=== PATIENT | female | born 1995 | race African-American/Black ===

== ENCOUNTER 2020-03-10 13:58 | Outpatient (CLI) | payer OTHER ==
[2020-03-11 13:27] LABS: SARS-CoV-2 MS2 Positive; SARS-CoV-2 N Gene Negative; SARS-CoV-2 S Gene Negative; SARS-CoV-2 by NAA Not Detected (NotDetected); SARS-CoV-2 orf1ab Negative
== END 2020-03-10 13:59 | disposition home or self-care (01) ==
LOC: LABSCS 13:58
PROVIDERS: ATTEND Family Medicine
DX: Z20.828 Contact with and (suspected) exposure to other viral communicable diseases (principal)
CPT/HCPCS: 87635; U0003

== ENCOUNTER 2020-03-12 14:55 | Inpatient (IN) | payer OTHER ==
[2020-03-13] MEDS ORDERED: Promethazine HCl 25 MG/ML VIAL IM PRN (00:45)
[2020-03-13] MEDS ORDERED: Lidocaine 1% (PF) 30 ML VIAL SC PRN (00:45)
[2020-03-13] MEDS ORDERED: Ondansetron PF 4 MG/2 ML Vial IVP PRN ×2 (00:45→13:34)
[2020-03-13] MEDS ORDERED: HYDROcodone/Acetaminophen 5/325 mg Tablet PO PRN ×3 (00:45→13:34)
[2020-03-13] MEDS ORDERED: Ibuprofen 800 MG TAB PO PRN (00:45)
[2020-03-13] MEDS ORDERED: Diphenoxylate HCl/Atropine Tablet PO PRN (00:45)
[2020-03-13] MEDS ORDERED: NS w/ Oxytocin 10 units 500 ML IV SCH ×2 (00:45)
[2020-03-13] MEDS ORDERED: Butorphanol Tartrate 1 MG/ML VIAL SLOW IVP PRN (00:45)
[2020-03-13] MEDS ORDERED: Misoprostol 200 MCG TAB PR PRN (00:45)
[2020-03-13] MEDS ORDERED: NS / Oxytocin 40 units/1000ml 1,000 ML IV PRN (00:45)
[2020-03-13] MEDS ORDERED: hydrALAZINE 20 MG/ML VIAL SLOW IVP PRN ×2 (00:45→13:34)
[2020-03-13] MEDS ORDERED: Methylergonovine 0.2 MG/ML VIAL IM PRN (00:45)
[2020-03-13] MEDS ORDERED: Penicillin G Potassium 5 MILL.UNITS in Sodium Chloride 0.9% 100 ML IVPB SCH (00:45)
[2020-03-13] MEDS ORDERED: Carboprost 250 MCG/ML AMP IM PRN (00:45)
[2020-03-13 00:54] VITALS: BMI 26.7
[2020-03-13] MEDS: Lactated Ringer's 1,000 ML IV SCH ×2 (01:33→05:10)
[2020-03-13 01:59] LABS: Hemoglobin 11.3 g/dL (12.0-16.0); Mean Corpuscular HGB CONC 34.2 g/dL (32.0-36.0); Mean Corpuscular Hemoglobin 31.4 pg (27.0-31.0); Mean Corpuscular Volume 91.8 fL (78.0-98.0); Mean Platelet Volume 10.4 fL (7.4-10.4); Platelet Count 155 thou/uL (130-400); RBC Distribution Width 11.9 % (11.5-14.5); Red Blood Cell (RBC) Count 3.62 mill/uL (4.20-5.40); White Blood Cell (WBC) Count 8.3 thou/uL (4.8-10.8)
[2020-03-13 02:31] LABS: HBSAg Index 0.16 S/CO (0-0.99); Hep B Surf Ag Non-Reactive S/CO (NonReactive)
[2020-03-13 03:32] LABS: Syphilis Antibody Nonreactive (Nonreactive); Syphilis Antibody Index 0.03 S/CO (<1.00 Non-Reactive)
[2020-03-13] MEDS: Penicillin G 2.5 MILL.units 2.5 MILL.UNITS in Premix Bag 1 BAG IVPB SCH ×4 (05:55→17:28)
[2020-03-13] MEDS: Misoprostol 100 MCG TAB PO SCH ×3 (08:44→17:26)
[2020-03-13] MEDS ORDERED: Milk Of Magnesia 30 ML UDCUP PO PRN (13:34)
[2020-03-13] MEDS ORDERED: diphenhydrAMINE 25 MG CAP PO PRN (13:34)
[2020-03-13] MEDS ORDERED: NS / Oxytocin 40 units/1000ml 1,000 ML IV SCH (13:34)
[2020-03-13] MEDS ORDERED: Benzocaine-Menthol 82.5 ML CAN TOP PRN (13:34)
[2020-03-13] MEDS ORDERED: Bisacodyl 10 MG SUPP PR PRN (13:34)
[2020-03-13] MEDS ORDERED: Misoprostol 200 MCG TAB ONE (15:14)
[2020-03-13] MEDS ORDERED: Methylergonovine 0.2 MG/ML VIAL ONE (15:22)
[2020-03-13] MEDS: Ibuprofen 800 MG TAB PO SCH ×2 (15:30→21:44)
[2020-03-13] MEDS ORDERED: Methylergonovine 0.2 MG/ML VIAL IM SCH (16:00)
[2020-03-13] MEDS: Ferrous Sulfate 325 MG TAB PO SCH (17:27)
[2020-03-13] MEDS: Docusate Calcium (SURFAK) 240 MG CAP PO SCH (19:56)
[2020-03-13] MEDS ORDERED: Misoprostol 200 MCG TAB PO SCH (21:00)
[2020-03-14] MEDS: Ibuprofen 800 MG TAB PO SCH ×2 (05:26→14:04)
[2020-03-14 08:10] VITALS: BP 123/70; TEMP 98.6
[2020-03-14] MEDS: Ferrous Sulfate 325 MG TAB PO SCH ×2 (08:21→18:39)
[2020-03-14] MEDS: Docusate Calcium (SURFAK) 240 MG CAP PO SCH (08:21)
[2020-03-14] MEDS ORDERED: Prenatal Vitamin 1 TAB PO SCH (09:00)
[2020-03-14] MEDS ORDERED: Adacel (T-DAP) 0.5 ML SYRINGE IM ONE (13:34)
== END 2020-03-14 18:50 | disposition home or self-care (01) | DRG 807 ==
LOC: L&D 03-13 00:32 → 3SW 03-13 16:55 → EDSTATUS 03-19 14:55
PROVIDERS: ADMIT Family Medicine; ATTEND Family Medicine
PROC: 10E0XZZ Delivery of Products of Conception, External Approach (ICD-10-PCS; principal; 2020-03-13)
PROC: 10907ZC Drainage of Amniotic Fluid, Therapeutic from Products of Conception, Via Natural or Artificial Opening (ICD-10-PCS; 2020-03-13)
DX: O99.824 Streptococcus B carrier state complicating childbirth (principal); Z37.0 Single live birth; Z3A.39 39 weeks gestation of pregnancy; Z20.828 Contact with and (suspected) exposure to other viral communicable diseases; O70.0 First degree perineal laceration during delivery
CPT/HCPCS: 36415; 85027; 86780; 86850; 86900; 86901; 87340; J2210; J2540; J2590; J3490